=== PATIENT | female | born 1955 | race Caucasian/White ===

== ENCOUNTER → 2017-01-25 | Outpatient (CLI) | payer BC ==
--- NOTE | 2017-01-29 12:51 | Diagnostic Imaging Report ---
INDICATION: Screening. The current study was also evaluated with a Computer Aided Detection (CAD) system. Comparison made to prior examination 01/11/2016; 01/10/2015; 01/19/2014; and 10/31/2012. FINDINGS: There is a moderate amount of residual fibroglandular tissue bilaterally. There are scattered benign-type calcifications. There is no new dominant mass, spiculated lesion, or suspicious calcifications identified. Skin, nipples, and axilla are unremarkable. IMPRESSION: Category 2 benign. ACR BI-RADS Category 2: Benign findings. Result letter will be mailed to the patient. Note: At least 10% of breast cancer is not imaged by mammography. Dictated by: Dictated on workstation # [id number]
== END ==
LOC: RAD 07:49
PROVIDERS: ATTEND Family Medicine
DX: Z12.31 Encounter for screening mammogram for malignant neoplasm of breast (principal)
CPT/HCPCS: 77067

== ENCOUNTER → 2017-04-08 | Outpatient (CLI) | payer BC ==
[~2017-04-08] MED LIST: IOHEXOL 350 MG/ML 100 ML (OMNIPAQUE 350) VIAL IV ONE; NS 100 ML (IVPB) BAG IV ONE
--- NOTE | 2017-04-08 12:27 | Diagnostic Imaging Report ---
EXAMINATION: CT scan of the head with and without contrast and CT scan of the neck with intravenous contrast. INDICATION: Left neck lump and abnormal dental x-ray. CONTRAST: 80 mL of Omnipaque 350 was administered intravenously. FINDINGS: The unenhanced phase of the head demonstrates no intracranial hemorrhage. No brain edema or mass effect. No enhancing mass. No hydrocephalus. No extra-axial fluid collection is seen. The calvarium, paranasal sinuses, and orbits appear grossly unremarkable. CT NECK: There is asymmetry in the thyroid gland which is slightly heterogenous without a discrete lesion. The left lobe is significantly larger than the right lobe. This could be a normal variation or related to goiter without a dominant nodule. The submandibular and parotid glands appear unremarkable. The mucosal pharyngeal space demonstrates no definite mass. Symmetric vocal cords are seen. In the posterior aspect of the neck at the C1 level near the subcutaneus tissues, there is a 1.1 cm oval partially calcified lesion with a benign appearance, probably related to prior infection. It is close to the skin and could potentially relate to a sebaceous cyst. The osseous structures appear grossly unremarkable. IMPRESSION: CT HEAD: No intracranial hemorrhage. No enhancing mass. CT NECK: 1. Slightly heterogenous asymmetric enlargement of the left thyroid gland with no discrete mass. 2. Subcutaneous 1.1 cm oval nodule in the posterior upper aspect of the neck, probably sequela of an old infection. No acute process. Dictated by: Dictated on workstation # [id number]
== END ==
LOC: RAD 07:19
PROVIDERS: ATTEND Family Medicine
DX: R22.1 Localized swelling, mass and lump, neck (principal); E04.9 Nontoxic goiter, unspecified
CPT/HCPCS: 70470; 70491

== ENCOUNTER → 2018-01-31 | Outpatient (CLI) | payer BC ==
--- NOTE | 2018-01-31 17:52 | Diagnostic Imaging Report ---
INDICATION: Routine screening. Comparison is made with prior exam from 01/25/2017 and 01/11/2016. 2-D and 3-D bilateral screening mammography was performed. The current study was also evaluated with a Computer Aided Detection (CAD) system. FINDINGS: Both breasts are heterogeneously dense, limiting the sensitivity of mammography. Occasional benign calcifications are seen bilaterally. The parenchymal pattern is stable. No mass or malignant-appearing microcalcifications are seen. The axillae are unremarkable. IMPRESSION: No mammographic features suspicious for malignancy are identified. ACR BI-RADS Category 2: Benign findings. Result letter will be mailed to the patient. Note: At least 10% of breast cancer is not imaged by mammography. Dictated by: Dictated on workstation # [id number]
== END ==
LOC: RAD 07:44
PROVIDERS: ATTEND Family Medicine
DX: Z12.31 Encounter for screening mammogram for malignant neoplasm of breast (principal)
CPT/HCPCS: 77067

== ENCOUNTER → 2019-02-02 | Outpatient (CLI) | payer BC ==
--- NOTE | 2019-02-02 09:29 | Diagnostic Imaging Report ---
INDICATION: Routine screening. COMPARISON: 01/31/2018 and 01/25/2017. TECHNIQUE: 2D and 3D bilateral screening mammography was performed with CAD. FINDINGS: Scattered fibroglandular densities are identified bilaterally. There are scattered benign-appearing calcifications in both breasts. A probable intraparenchymal lymph node in the medial right breast is seen. No spiculated mass or malignant appearing microcalcifications are seen. The axillae are unremarkable. IMPRESSION: No mammographic features suspicious for malignancy are identified. ACR BI-RADS Category 2: Benign findings. Result letter will be mailed to the patient. Note: At least 10% of breast cancer is not imaged by mammography. Dictated by: Dictated on workstation # [id number]
== END ==
LOC: RAD 07:31
PROVIDERS: ATTEND Family Medicine
DX: Z12.31 Encounter for screening mammogram for malignant neoplasm of breast (principal)
CPT/HCPCS: 77067

== ENCOUNTER 2020-01-27 05:46 | Outpatient (CLI) | payer BC ==
[~2020-01-27] VITALS: Ht 165.1 cm; Wt 75.9 kg
[2020-01-27] MEDS ORDERED: VIT1TABL26 PO (10:21)
[2020-01-27] MEDS ORDERED: TURM1CAP PO (10:21)
[2020-01-27] MEDS ORDERED: FOLI1TAB24 PO (10:21)
[2020-01-27] MEDS ORDERED: LEVO50TA6 PO (10:21)
[2020-01-27] MEDS ORDERED: CALC-250 PO (10:21)
[2020-01-27] MEDS ORDERED: CA C1TAB79 PO (10:21)
[2020-01-27] MEDS ORDERED: METH2.5T PO (10:21)
[2020-01-27] MEDS ORDERED: ATOR10TA66 PO (10:21)
== END 2020-01-27 10:46 ==
LOC: PREOP 05:46
PROVIDERS: ATTEND Specialist
DX: Z01.818 Encounter for other preprocedural examination (principal)

== ENCOUNTER 2020-01-29 06:10 | Day surgery (SDC) | payer BC ==
[~2020-01-29] VITALS: Ht 165 cm; Wt 75.9 kg
[~2020-01-29 06:10] MED LIST changes: +ATOR10TA66 PO; +CA C1TAB79 PO; +CALC-250 PO; +FOLI1TAB24 PO; -IOHEXOL 350 MG/ML 100 ML (OMNIPAQUE 350) VIAL IV ONE; +LEVO50TA6 PO; +METH2.5T PO; -NS 100 ML (IVPB) BAG IV ONE; +TURM1CAP PO; +VIT1TABL26 PO
[2020-01-29 06:20] VITALS: BP 129/70
[2020-01-29] MEDS: TETRACAINE 0.5% OPHTH SOLN 4 ML BTL (SINGLE DOSE ONLY) OU PRN ×4 (06:24→06:48)
[2020-01-29] MEDS ORDERED: POVIDONE (BETADINE) OPHTH SOLN 5% 30 ML OP ONE (06:30)
[2020-01-29] MEDS ORDERED: MOXIFLOXACIN OPHTH SOLN 5 MG/ML 0.3 ML SYRINGE OP ONE (06:30)
[2020-01-29] MEDS ORDERED: TIMOLOL MALEATE 0.5% 5 ML (TIMOPTIC) BTL OU PRN (06:30)
[2020-01-29] MEDS ORDERED: LIDOCAINE PF 1% 2 ML VIAL IR PRN (06:30)
[2020-01-29] MEDS: CYCLOPENTOLATE 1% (CYCLOGYL) 2 ML DROPS OP SCH ×3 (06:35→06:48)
[2020-01-29] MEDS: PHENYLEPHRINE 10% OPHTH (NEO-SYN) 5 ML BTL OU SCH ×3 (06:35→06:48)
[2020-01-29] MEDS ORDERED: MIDAZOLAM 2 MG/2 ML (VERSED) VIAL ONE (06:41)
--- NOTE | 2020-01-29 07:22 | Ophthalmologist Pre-Op Note ---
Pre-Operative Progress Note H&P Reviewed The H&P was reviewed, patient examined and no changes noted. Date H&P Reviewed: Jan 29, 2020 Time H&P Reviewed: 07:22 Pre-Op Dx Cataract, Left Eye ROJAS VICENTE MD Jan 29, 2020 07:22
--- NOTE | 2020-01-29 07:44 | Ophthalmology Operative Report ---
Cataract removal/placement IOL PREOPERATIVE DIAGNOSIS: Cataract Left Eye POSTOPERATIVE DIAGNOSIS: Cataract Left Eye PROCEDURE: Cataract removal and placement of posterior chamber implant, left eye SURGEON: Rusty Vicente ANESTHESIA: Topical with sedation COMPLICATIONS: None ESTIMATED BLOOD LOSS: Minimal DESCRIPTION OF PROCEDURE: After proper informed consent was obtained, the patient, a 64 female, was taken to the Operating Room and the left eye was anesthetized with tetracaine. The left eye was then prepped and draped in the usual manner. A wire lid speculum was placed. A paracentesis was made at the left hand position. Preservative free lidocaine was injected into the anterior chamber followed by viscoelastic. A clear corneal incision was made in the temporal position. A capsulorrhexis was preformed and the central nuclear and cortical material were removed. The posterior capsule was polished and an Jose Daniel 17.0 AU00T0 was placed into the capsular bag. The residual viscoelastic was aspirated and balanced saline solution was injected into the anterior chamber. Moxifloxacin was injected into the anterior chamber. The wound was checked and found to be water tight. The patient tolerated the procedure well without complications. RUSTY VICENTE MD Jan 29, 2020 07:44
[2020-01-29 07:52] VITALS: BP 123/72
[2020-01-29] MEDS ORDERED: acetaZOLAMIDE ER 500 MG CAP (DIAMOX SEQUELS) PO ONE (08:00)
--- NOTE | 2020-01-29 10:44 | Anesthesia-General Post-Op ---
MAC Patient Condition Mental Status/LOC: Same as Preop Cardiovascular: Satisfactory Nausea/Vomiting: Absent Respiratory: Satisfactory Pain: Controlled Complications: Absent Post Op Complications Complications None Follow Up Care/Instructions Patient Instructions None needed. Anesthesiology Discharge Order Discharge Order Patient is doing well, no complaints, stable vital signs, no apparent adverse anesthesia problems. No complications reported per nursing. IESHA HENRY CRNA Jan 29, 2020 10:44
== END 2020-01-29 07:52 | disposition home or self-care (01) ==
LOC: SDC 06:10
PROVIDERS: ATTEND Specialist
DX: H25.12 Age-related nuclear cataract, left eye (principal); M06.9 Rheumatoid arthritis, unspecified; E03.9 Hypothyroidism, unspecified; E78.5 Hyperlipidemia, unspecified; E78.00 Pure hypercholesterolemia, unspecified; Z79.899 Other long term (current) drug therapy; Z79.890 Hormone replacement therapy
CPT/HCPCS: 66984; V2632

== ENCOUNTER 2020-02-12 06:05 | Day surgery (SDC) | payer BC ==
[~2020-02-12] VITALS: Ht 165 cm; Wt 75.9 kg
[2020-02-12 06:05] VITALS: BP 124/76
[2020-02-12] MEDS ORDERED: MOXIFLOXACIN OPHTH SOLN 5 MG/ML 0.3 ML SYRINGE OP ONE (06:15)
[2020-02-12] MEDS ORDERED: POVIDONE (BETADINE) OPHTH SOLN 5% 30 ML OP ONE (06:15)
[2020-02-12] MEDS ORDERED: TIMOLOL MALEATE 0.5% 5 ML (TIMOPTIC) BTL OU PRN (06:15)
[2020-02-12] MEDS ORDERED: LIDOCAINE PF 1% 2 ML VIAL IR PRN (06:15)
[2020-02-12] MEDS: TETRACAINE 0.5% OPHTH SOLN 4 ML BTL (SINGLE DOSE ONLY) OU PRN ×4 (06:16→06:48)
[2020-02-12] MEDS: CYCLOPENTOLATE 1% (CYCLOGYL) 2 ML DROPS OP SCH ×3 (06:26→06:49)
[2020-02-12] MEDS: PHENYLEPHRINE 10% OPHTH (NEO-SYN) 5 ML BTL OU SCH ×3 (06:26→06:48)
--- NOTE | 2020-02-12 07:22 | Ophthalmologist Pre-Op Note ---
Pre-Operative Progress Note H&P Reviewed The H&P was reviewed, patient examined and no changes noted. Date H&P Reviewed: Feb 12, 2020 Time H&P Reviewed: 07:22 Pre-Op Dx Cataract, Right Eye ROJAS VICENTE MD Feb 12, 2020 07:22
[2020-02-12] MEDS ORDERED: MIDAZOLAM 2 MG/2 ML (VERSED) VIAL ONE (07:27)
[2020-02-12] MEDS ORDERED: acetaZOLAMIDE ER 500 MG CAP (DIAMOX SEQUELS) PO ONE (07:30)
--- NOTE | 2020-02-12 07:43 | Ophthalmology Operative Report ---
Cataract removal/placement IOL PREOPERATIVE DIAGNOSIS: Cataract Right Eye POSTOPERATIVE DIAGNOSIS: Cataract Right Eye PROCEDURE: Cataract removal and placement of posterior chamber implant, right eye SURGEON: Rusty Vicente ANESTHESIA: Topical with sedation COMPLICATIONS: None ESTIMATED BLOOD LOSS: Minimal DESCRIPTION OF PROCEDURE: After proper informed consent was obtained, the patient, a 64 female, was taken to the Operating Room and the right eye was anesthetized with tetracaine. The right eye was then prepped and draped in the usual manner. A wire lid speculum was placed. A paracentesis was made at the left hand position. Preservative free lidocaine was injected into the anterior chamber followed by viscoelastic. A clear corneal incision was made in the temporal position. A capsulorrhexis was preformed and the central nuclear and cortical material were removed. The posterior capsule was polished and Jose Daniel 16.5 AU00T0 IOL was placed into the capsular bag. The residual viscoelastic was aspirated and balanced saline solution was injected into the anterior chamber. Moxifloxacin was injected into the anterior chamber. The wound was checked and found to be water tight. The patient tolerated the procedure well without complications. RUSTY VICENTE MD Feb 12, 2020 07:43
[2020-02-12 07:55] VITALS: BP 125/70
--- NOTE | 2020-02-12 13:01 | Anesthesia-General Post-Op ---
MAC Patient Condition Mental Status/LOC: Same as Preop Cardiovascular: Satisfactory Nausea/Vomiting: Absent Respiratory: Satisfactory Pain: Controlled Complications: Absent Post Op Complications Complications None Follow Up Care/Instructions Patient Instructions None needed. Anesthesiology Discharge Order Discharge Order Patient is doing well, no complaints, stable vital signs, no apparent adverse anesthesia problems. No complications reported per nursing. ONI PACE CRNA Feb 12, 2020 13:01
== END 2020-02-12 07:55 | disposition home or self-care (01) ==
LOC: SDC 06:05
PROVIDERS: ATTEND Specialist
DX: H25.11 Age-related nuclear cataract, right eye (principal); E03.9 Hypothyroidism, unspecified; E78.00 Pure hypercholesterolemia, unspecified; M06.9 Rheumatoid arthritis, unspecified; Z79.899 Other long term (current) drug therapy; Z80.8 Family history of malignant neoplasm of other organs or systems
CPT/HCPCS: 66984; V2632

== ENCOUNTER → 2020-02-22 | Outpatient (CLI) | payer BC ==
--- NOTE | 2020-02-22 19:28 | Diagnostic Imaging Report ---
EXAM: Digital mammogram bilateral screening COMPARISONS: This study was compared to the prior exams of 02/02/2019, 01/31/2018 and 01/25/2017. There are no current complaints. 3D digital tomography Bilateral History: Routine screening Technique: Bilateral 3d digital tomographic views were obtained with [employer] and reviewed on a [employer] workstation. In addition, CAD - computer aided detection was utilized. Findings: Breast Tissue Density C : The breast tissue is heterogeneously dense. Scattered fibroglandular elements may obscure underlying pathology. There are no suspicious masses, microcalcifications or areas of architectural distortion. Impression: No suspicious findings. BI-RADS Category 1: Negative. ACR BI-RADS Category 1: Negative. Result letter will be mailed to the patient. Note: At least 10% of breast cancer is not imaged by mammography. Normal interval followup. The patient will receive a letter with the results in the mail. Your mammogram demonstrates that you have dense breast tissue, which could hide abnormalities, and if you have other risk factors for breast cancer that have been identified, you might benefit from supplemental screening tests that may be suggested by your ordering physician. Dense breast tissue, in and of itself, is a relatively common condition. This information is not provided to cause undue concern, but rather to raise your awareness and to promote discussion with your physician regarding the presence of other risk factors, in addition to dense breast tissue. A report of your mammography results will be sent to you and your physician. You should contact your physician if you have any questions or concerns regarding this report. A mammogram does not have 100% sensitivity and therefore a negative imaging study should not delay further work up of a suspicious abnormality. Patient information is entered into the [facility] reminder system using [employer] with a target due date for the next screening mammogram. The patient will receive a reminder. "Our facility is accredited by the [employer] Mammography Program." Dictated on workstation # [id number]
== END ==
LOC: RAD 08:00
PROVIDERS: ATTEND Family Medicine
DX: Z12.31 Encounter for screening mammogram for malignant neoplasm of breast (principal)
CPT/HCPCS: 77063; 77067

== ENCOUNTER → 2022-02-23 | Outpatient (CLI) | payer BC ==
[~2022-02-23] MED LIST changes: -FOLI1TAB24 PO; +FOLI1TAB33 PO
== END ==
LOC: RAD 08:00
PROVIDERS: ATTEND Family Medicine
DX: Z12.31 Encounter for screening mammogram for malignant neoplasm of breast (principal)
CPT/HCPCS: 77063; 77067

== ENCOUNTER 2022-03-21 05:40 | Outpatient (CLI) | payer BC ==
[~2022-03-21] VITALS: Ht 165.1 cm; Wt 77.8 kg
[2022-03-21] MEDS ORDERED: MELO7.5T46 PO (08:37)
== END 2022-03-21 08:38 | disposition home or self-care (01) ==
LOC: PREOP 05:40
PROVIDERS: ATTEND Surgery
DX: Z01.818 Encounter for other preprocedural examination (principal)

== ENCOUNTER 2022-03-26 07:52 | Day surgery (SDC) | payer BC ==
[~2022-03-26] VITALS: Ht 165.1 cm; Wt 77.8 kg
[~2022-03-26 07:52] MED LIST changes: +MELO7.5T46 PO
[2022-03-26] MEDS ORDERED: LACTATED RINGERS 1,000 ML IV STA (08:01)
[2022-03-26] MEDS ORDERED: PROPOFOL INJECTION 50 ML IV ONE (08:06)
[2022-03-26] MEDS ORDERED: MIDAZOLAM 2 MG/2 ML (VERSED) VIAL ONE (08:06)
[2022-03-26 08:11] VITALS: BP 132/71
--- NOTE | 2022-03-26 08:25 | Progress Note-Pre Operative ---
Pre-Operative Progress Note Date of Available H&P: Mar 13, 2022 Date H&P Reviewed: Mar 26, 2022 Time H&P Reviewed: 08:13 History & Physical: H&P Reviewed, Patient Examed, No changes noted Pre-Operative Diagnosis: screening BLANCA GOMEZ DO Mar 26, 2022 08:25
--- NOTE | 2022-03-26 09:39 | Progress Note-Post Operative ---
Post-Operative Progess Note Surgeon (s)/Crop Duster Helper (s) Surgeon BLANCA GOMEZ DO Crop Duster Helper: none Pre-Operative Diagnosis screening Post-Operative Diagnosis Diverticula int hemorrhoids Procedure & Operative Findings Date of Procedure 03/26/22 Procedure Performed/Findings Colonoscopy PROCEDURE NOTE: After informed consent was obtained, the patient was brought to the endoscopy suite, placed in bed in left lateral decubitus position. She was administered IV sedation by the SEAL SKINNER who then monitored her vitals the entire time, heart rate, blood pressure and pulse ox and the scope was inserted, pushed all the way to about 150 cm and pushed into the cecum. On the way in noted some diverticula and a took a picture of them. Once in the ceum I took a picture of appendiceal orifice and then slowly withdrew the scope insufflating to look circumferentially at the faria starting in the cecum, up the ascending colon to the hepatic flexure, then down the transverse colon, splenic flexure, into the descending colon down in the sigmoid and then into the rectal vault and retroflexed the scope. Took picture of the internal hemorrhoids. The patient tolerated the procedure. She was recovered in endoscopy suite. Recommended for repeat colonoscopy in 10 years. Anesthesia Type IV sedation by SEAL SKINNER Estimated Blood Loss Estimated blood loss (mL): none Specimens/Packing Specimens Removed none BLANCA GOMEZ DO Mar 26, 2022 09:39
[2022-03-26 09:40] VITALS: BP 138/60
--- NOTE | 2022-03-26 09:40 | Endoscopy Discharge Instruct ---
Endo Procedure/Findings Findings 1.: Diverticulosis 2.: Internal Hemorrhoids Discharge Instructions - Activity: You might feel a little sleepy until tomorrow. This is due to the medicine you received to relax you. Until tomorrow, you should: NOT drive a car, operate machinery or power tools. NOT drink any alcoholic beverages. NOT make any important decisions or sign importortant papers. Do not return to work until tomorrow, unless otherwise instructed. Resume previous activities tomorrow. Diet: Start by taking liquids. If you tolerate liquids, advance to solid food. 1.: Colonscopy in 10 years Notify Physician - If you experience excessive bleeding, unusual abdominal pain, fever, or chest pain, contact your doctor immediately. BLANCA GOMEZ DO Mar 26, 2022 09:40
[2022-03-26 09:45] VITALS: BP 129/60
[2022-03-26 09:50] VITALS: BP 131/63
[2022-03-26 10:20] VITALS: BP 129/55
[2022-03-26 10:21] VITALS: BP 129/55
--- NOTE | 2022-03-26 10:52 | Anesthesia-General Post-Op ---
MAC Patient Condition Mental Status/LOC: Same as Preop Cardiovascular: Satisfactory Nausea/Vomiting: Absent Respiratory: Satisfactory Pain: Controlled Complications: Absent Post Op Complications Complications None Follow Up Care/Instructions Patient Instructions None needed. Anesthesiology Discharge Order Discharge Order Patient is doing well, no complaints, stable vital signs, no apparent adverse anesthesia problems. No complications reported per nursing. ONI PACE CRNA Mar 26, 2022 10:52
== END 2022-03-26 10:30 | disposition home or self-care (01) ==
LOC: ENDO 07:52
PROVIDERS: ATTEND Surgery
DX: Z12.11 Encounter for screening for malignant neoplasm of colon (principal); K57.30 Diverticulosis of large intestine without perforation or abscess without bleeding; K64.8 Other hemorrhoids